=== PATIENT | male | born 1950 | race Two or more races ===

== ENCOUNTER 2016-11-22 17:35 | Emergency (ER) | payer MEDICARE ==
[~2016-11-22] VITALS: Ht 154.9 cm; Wt 79.4 kg
[2016-11-22 18:44] LABS: Basophils # (auto) 0.1 uL; Basophils % (auto) 0.9 % (0.0-2.0); Eosinophils # (auto) 0.1 uL; Eosinophils % (auto) 1.3 % (0.0-7.0); Hematocrit 42.6 % (41.0-53.0); Hemoglobin 14.5 g/dL (13.5-17.5); Lymphocytes # (auto) 1.5 uL; Lymphocytes % (auto) 21.3 % (10.0-50.0); Mean Corpuscular Hemoglobin 31.7 pg (28.0-32.0); Mean Corpuscular Volume 93.2 fL (80.0-100.0); Mean Platelet Volume 9.2 fL (7.4-10.4); Monocytes # (auto) 0.7 uL; Monocytes % (auto) 10.1 % (0.0-12.0); Neutrophils # (auto) 4.7 uL; Neutrophils % (auto) 66.4 % (37.0-80.0); Platelet Count (auto) 191 10^3/uL (140-450); Red Cell Distribution Width 13.2 % (11.6-16.0); White Blood Cell 7.1 10^3/uL (4.4-10.8)
[2016-11-22 18:58] LABS: Albumin 3.8 g/dL (3.4-5.0); BUN/Creatinine Ratio 12.7; Bilirubin, Total 0.8 mg/dL (0.2-1.0); Calcium 8.8 mg/dL (8.5-10.1); INR 1.13 (0.9-1.15); Potassium 3.8 mmol/L (3.5-5.1); Prothrombin Time 11.6 sec (9.37-12.3); Total Protein 8.1 g/dL (6.4-8.2); Uric Acid 7.6 mg/dL (3.5-7.2)
[2016-11-23 02:49] VITALS: BP 143/92
[2016-11-23] MEDS ORDERED: NAPROXEN 500 MG TAB PO ONE (03:00)
[2016-11-23] MEDS ORDERED: SULFAMETHOX W/TRIMETH(800/160MG) DS TAB PO ONE (03:00)
[2016-11-23] MEDS ORDERED: DEXAMETHASONE 4 MG TAB PO ONE (03:00)
[2016-11-23] MEDS ORDERED: COLCHICINE 0.6 MG CAP PO ONE (03:00)
== END 2016-11-23 04:12 | disposition home or self-care (01) ==
LOC: ER 17:42
DX: M10.9 Gout, unspecified (principal)
CPT/HCPCS: 36415; 80053; 84550; 85025; 85610; 99284; J8540

== ENCOUNTER 2019-04-29 19:16 | Emergency (ER) | payer MEDICAID, OTHER ==
[~2019-04-29] VITALS: Ht 165.1 cm; Wt 72.6 kg
[2019-04-29 23:08] VITALS: BP 139/88
[2019-04-30] MEDS ORDERED: METHOCARBAMOL 500 MG TAB PO ONE (00:30)
[2019-04-30] MEDS ORDERED: IBUPROFEN 800 MG TAB PO ONE (00:30)
== END 2019-04-30 01:05 | disposition home or self-care (01) ==
LOC: ER 19:23
DX: S80.812A Abrasion, left lower leg, initial encounter (principal); S80.811A Abrasion, right lower leg, initial encounter; M25.511 Pain in right shoulder; R07.89 Other chest pain; R13.10 Dysphagia, unspecified; V43.52XA Car driver injured in collision with other type car in traffic accident, initial encounter; Y93.I9 Activity, other involving external motion; Y92.488 Other paved roadways as the place of occurrence of the external cause; Y99.8 Other external cause status
CPT/HCPCS: 70490; 72125; 73030